=== PATIENT | female | born 1970 | race Caucasian/White ===

== ENCOUNTER → 2019-12-07 | Outpatient (CLI) | payer OTHER ==
[~2019-12-07] MED LIST: CIPROFLOXACIN500 M1 PO; NOHOMEMEDICATIONS; NORCO 5-325 TA1 EACH PO
== END ==
LOC: M.RAD 14:38
PROVIDERS: ATTEND Otolaryngology Plastic Surgery within the Head & Neck
DX: G54.0 Brachial plexus disorders (principal); M41.84 Other forms of scoliosis, thoracic region